=== PATIENT | male | born 1975 | race Hispanic/Latino ===

== ENCOUNTER 2018-08-13 03:03 | Emergency (ER) | payer OTHER ==
[2018-08-13 03:34] LABS: APPEARANCE,URINE Clear (CLEAR); BILIRUBIN,URINE Negative (NEGATIVE); COLOR,URINE Yellow (YELLOW); GLUCOSE, URINE (UA) Negative (NEGATIVE); KETONES,URINE 15 mg/dL (NEGATIVE); LEUKOCYTE ESTERASE ,URINE Negative (NEGATIVE); NITRATE,URINE Negative (NEGATIVE); OCCULT BLOOD,URINE Negative (NEGATIVE); PH,URINE 5.5 (5.0-8.0); PROTEIN,URINE Negative (NEGATIVE)
[2018-08-13 03:42] LABS: AMPHET/METH SCREEN,URINE NEGATIVE (NEGATIVE); BARBITURATE SCREEN, URINE NEGATIVE (NEGATIVE); BENZODIAZEPINES SCREEN,URINE NEGATIVE (NEGATIVE); CANNABINOID SCREEN,URINE POSITIVE (NEGATIVE); COCAINE SCREEN,URINE NEGATIVE (NEGATIVE); OPIATE SCREEN,URINE NEGATIVE (NEGATIVE); PHENCYCLIDINE SCREEN,URINE NEGATIVE (NEGATIVE)
[2018-08-13 04:20] LABS: BASOPHILS % (AUTO) 0.5 % (0.0-5.0); EOSINOPHILS % (AUTO) 0.3 % (0.0-8.0); HEMATOCRIT 45.1 % (42-54); LYMPHOCYTES % (AUTO) 16.4 % (21.0-51.0); MEAN CORPUSCULAR HGB CONC 34.6 g/dL (32.0-36.0); MEAN CORPUSCULAR VOLUME 89.7 fL (79-99); MONOCYTES % (AUTO) 6.5 % (3.0-13.0); NEUTROPHILS % (AUTO) 76.3 % (40.0-77.0); PLATELET COUNT (AUTO) 228 K/uL (130-400); RED BLOOD CELL COUNT(AUTO) 5.03 MIL/uL (4.50-6.20); RED CELL DISTRIBUTION WIDTH 13.5 % (11.0-15.5); WHITE BLOOD COUNT (AUTO) 11.9 K/uL (4.8-10.8)
[2018-08-13 04:27] LABS: CARBON DIOXIDE 23 mmol/L (21-32); CHLORIDE 102 mmol/L (101-111); CREATININE 1.4 mg/dL (0.5-1.5); GLOMERULAR FILTR. RATE CALC 59 mL/min (>60); GLUCOSE,RANDOM 108 mg/dL (70-105); POTASSIUM 3.5 mmol/L (3.5-5.1); SODIUM SERUM 140 mmol/L (136-145); UREA NITROGEN, BLOOD 26 mg/dL (7-18)
[2018-08-13 04:33] LABS: ACETAMINOPHEN < 1 mcg/mL (10-29); ALANINE AMINOTRANSFERASE 56 U/L (12-78); ALBUMIN 4.4 g/dL (3.5-5.0); ASPARTATE AMINOTRANSFERASE 34 U/L (10-37); CREATINE KINASE, TOTAL 277 U/L (21-232); SALICYLATE < 2.8 mg/dL (2.8-20.0); TOTAL PROTEIN, SERUM 7.8 g/dL (6.0-8.3)
[2018-08-13 04:34] LABS: ALCOHOL, BLOOD < 3 mg/dL (0-10)
== END 2018-08-13 08:33 | disposition home or self-care (01) ==
LOC: EDH 03:03
DX: F32.9 Major depressive disorder, single episode, unspecified (principal); F12.10 Cannabis abuse, uncomplicated; R45.851 Suicidal ideations; F20.9 Schizophrenia, unspecified; Z72.0 Tobacco use
CPT/HCPCS: 36415; 80053; 80305; 81003; 82550; 84484; 85025; 93005; 99285; G0480 ×2; G0481

== ENCOUNTER 2018-08-18 20:29 | Emergency (ER) | payer OTHER ==
[2018-08-18 22:04] LABS: APPEARANCE,URINE Clear (CLEAR); BILIRUBIN,URINE Negative (NEGATIVE); COLOR,URINE Yellow (YELLOW); GLUCOSE, URINE (UA) Negative (NEGATIVE); KETONES,URINE Negative (NEGATIVE); LEUKOCYTE ESTERASE ,URINE Negative (NEGATIVE); NITRATE,URINE Negative (NEGATIVE); OCCULT BLOOD,URINE Negative (NEGATIVE); PROTEIN,URINE Negative (NEGATIVE)
[2018-08-18 22:12] LABS: AMPHET/METH SCREEN,URINE NEGATIVE (NEGATIVE); BARBITURATE SCREEN, URINE NEGATIVE (NEGATIVE); BENZODIAZEPINES SCREEN,URINE NEGATIVE (NEGATIVE); CANNABINOID SCREEN,URINE POSITIVE (NEGATIVE); COCAINE SCREEN,URINE NEGATIVE (NEGATIVE); OPIATE SCREEN,URINE NEGATIVE (NEGATIVE); PHENCYCLIDINE SCREEN,URINE NEGATIVE (NEGATIVE)
== END 2018-08-18 23:00 | disposition left against medical advice (07) ==
LOC: EDH 20:29
DX: F31.89 Other bipolar disorder (principal); F19.10 Other psychoactive substance abuse, uncomplicated; F20.9 Schizophrenia, unspecified; E11.9 Type 2 diabetes mellitus without complications; Z72.0 Tobacco use
CPT/HCPCS: 80305; 81003

== ENCOUNTER 2018-08-20 14:48 | Emergency (ER) | payer OTHER | END 2018-08-20 16:51 | disposition home or self-care (01) | LOC: EDH 14:48 | DX: Z00.00 Encounter for general adult medical examination without abnormal findings (principal); E11.9 Type 2 diabetes mellitus without complications; F20.9 Schizophrenia, unspecified; F32.9 Major depressive disorder, single episode, unspecified; F41.9 Anxiety disorder, unspecified; Z98.890 Other specified postprocedural states; Z91.041 Radiographic dye allergy status | CPT/HCPCS: 99281 ==

== ENCOUNTER 2018-08-22 06:39 | Emergency (ER) | payer OTHER ==
[2018-08-22 07:21] LABS: APPEARANCE,URINE Clear (CLEAR); BILIRUBIN,URINE Negative (NEGATIVE); COLOR,URINE Yellow (YELLOW); GLUCOSE, URINE (UA) Negative (NEGATIVE); KETONES,URINE 15 mg/dL (NEGATIVE); LEUKOCYTE ESTERASE ,URINE Negative (NEGATIVE); NITRATE,URINE Negative (NEGATIVE); OCCULT BLOOD,URINE Negative (NEGATIVE); PROTEIN,URINE Negative (NEGATIVE)
[2018-08-22 07:29] LABS: AMPHET/METH SCREEN,URINE NEGATIVE (NEGATIVE); BARBITURATE SCREEN, URINE NEGATIVE (NEGATIVE); BENZODIAZEPINES SCREEN,URINE NEGATIVE (NEGATIVE); CANNABINOID SCREEN,URINE POSITIVE (NEGATIVE); COCAINE SCREEN,URINE NEGATIVE (NEGATIVE); OPIATE SCREEN,URINE NEGATIVE (NEGATIVE); PHENCYCLIDINE SCREEN,URINE NEGATIVE (NEGATIVE)
[2018-08-22 07:32] LABS: BACTERIA,URINE None Seen /HPF (None Seen); RBC,URINE None Seen /HPF (0-1); SQUAMOUS EPITHELIAL CELL,UR 0-2 /HPF (0-2); WBC,URINE None Seen /HPF (0-1)
[2018-08-22 07:33] LABS: BASOPHILS % (AUTO) 0.5 % (0.0-5.0); EOSINOPHILS % (AUTO) 0.2 % (0.0-8.0); HEMATOCRIT 41.8 % (42-54); LYMPHOCYTES % (AUTO) 10.1 % (21.0-51.0); MEAN CORPUSCULAR HEMOGLOBIN 30.1 pg (27.0-33.0); MEAN CORPUSCULAR HGB CONC 34.1 g/dL (32.0-36.0); MEAN CORPUSCULAR VOLUME 88.2 fL (79-99); MONOCYTES % (AUTO) 6.1 % (3.0-13.0); NEUTROPHILS % (AUTO) 83.1 % (40.0-77.0); PLATELET COUNT (AUTO) 232 K/uL (130-400); RED BLOOD CELL COUNT(AUTO) 4.74 MIL/uL (4.50-6.20); RED CELL DISTRIBUTION WIDTH 12.9 % (11.0-15.5); WHITE BLOOD COUNT (AUTO) 13.3 K/uL (4.8-10.8)
[2018-08-22 08:02] LABS: CARBON DIOXIDE 24 mmol/L (21-32); CHLORIDE 100 mmol/L (101-111); CREATININE 1.2 mg/dL (0.5-1.5); GLOMERULAR FILTR. RATE CALC 70 mL/min (>60); GLUCOSE,RANDOM 115 mg/dL (70-105); POTASSIUM 3.7 mmol/L (3.5-5.1); SODIUM SERUM 136 mmol/L (136-145); UREA NITROGEN, BLOOD 26 mg/dL (7-18)
[2018-08-22 08:06] LABS: ACETAMINOPHEN < 1 mcg/mL (10-29); ALANINE AMINOTRANSFERASE 40 U/L (12-78); ALBUMIN 4.7 g/dL (3.5-5.0); ALCOHOL, BLOOD < 3 mg/dL (0-10); ASPARTATE AMINOTRANSFERASE 30 U/L (10-37); BILIRUBIN,TOTAL 1.2 mg/dL (0.2-1.0); CREATINE KINASE, TOTAL 335 U/L (21-232); SALICYLATE < 2.8 mg/dL (2.8-20.0); TOTAL PROTEIN, SERUM 7.9 g/dL (6.0-8.3)
== END 2018-08-22 16:27 | disposition short-term general hospital (02) ==
LOC: EDH 06:39
DX: F22 Delusional disorders (principal); R45.851 Suicidal ideations; F31.9 Bipolar disorder, unspecified; F41.9 Anxiety disorder, unspecified; E11.9 Type 2 diabetes mellitus without complications; F43.10 Post-traumatic stress disorder, unspecified
CPT/HCPCS: 36415; 80053; 80305; 81001; 82550 ×2; 84484; 85025; 93005; 99285; G0480 ×2; G0481

== ENCOUNTER 2024-12-09 18:25 | Observation (INO) | payer MEDICARE ==
[~2024-12-09] VITALS: Ht 180.3 cm; Wt 108.9 kg
--- NOTE | 2024-12-09 19:16 | ERN ---
ED Note History of Present Illness Stated Complaint: GBW AND HYPOGLYCEMIA Chief Complaint: Hypoglycemia Time Seen by MD: 19:10 Dictation: This is a 49-year-old male who presented to the emergency room with complaints of generalized body weakness and low sugars. Patient's and patient indicated that he felt really bad starting around 3-4 p.m. in the evening attempted to eat some hamburger which he could not when he continued to feels sick unable to think straight the patient's activated EMS. His blood glucose was noted to be 40 EMS gave him 12.5 g of D50 and brought him to the ER for further evaluation patient stated that he has been a diabetic and usually takes about 40 units of [place] insulin at midnight. Apparently his PCP has recently reduced it to 40 from 60 units. He took his routine insulin at midnight and ate a banana for breakfast during the day and went to a sports game to watch with his friend. Patient drank 324 oz alcoholic drinks and did not eat any lunch. After he came home around 3 he attempted to eat the hamburger. No nausea vomitings diarrhea hematemesis or melena. The stated that he could not think or talk properly. Patient stated that he also takes glipizide 1 tablet twice a day Temperature 98.1 pulse 71 respirations 18 blood pressure 124/72 with a pulse oximetry of 98% on room air Chronic medical problems include anxiety, PTSD, diabetes mellitus, chronic renal insufficiency. Allergies: Coded Allergies: Iodine and Iodide Containing Produc (Unverified Allergy, Unknown, 08/20/18) Past Medical History Past Medical History: Anxiety, Diabetes-Type II, Hypertension, Renal Failure Surgical History: None PSYCH History: anxiety, depression, other (PTSD) Social History: ETOH RN Note Reviewed/Agreed w/PFSH: Yes Review of System Dictation Constitutional: Negative for fever,chills, and weight loss positive for confusion severe weakness and lethargy Eyes: Negative for injury, pain,redness, and discharge ENT: Negative for injury,pain or swelling Cardiovascular: Negative for chest pain, palpitations, and edema Respiratory: Negative for shortness of breath, cough, and wheezing, Abdomen/GI: Negative for abdominal pain, nausea, vomiting, diarrhea, and constipation Back: Negative for injury and pain : Negative for injury, bleeding and discharge MS/Extremity: Negative for injury and deformity Skin: Negative for rash, and discoloration Neuro: Negative for headache, weakness, numbness, tingling, and seizure Psych: Negative for suicide ideation, homicidal ideation, and hallucinations Initial Vital Sign VS Vital Signs Date Time Temp Pulse Resp B/P (MAP) Pulse Ox O2 Delivery O2 Flow Rate FiO2 12/09/24 18:26 98.1 71 18 124/72 98 Room Air 0 12/09/24 19:25 21 Physical Exam Dictation General: awake, alert, NAD obese male Head/Face: Normocephalic, atraumatic Eyes: PERRL, EOMI, vision at baseline ENT: oral cavity clear, TMs clear, no signs of infection Neck: Trachea midline, supple, no nuchal rigidity Cardiovascular: RRR, normal S1/S2, No MRGs, no JVD Respiratory: CTAB, no respiratory distress, No rales or wheezes Abdomen: Soft, non-tender, non-distended, normal bowel sounds, no guarding or rebound. Skin: Warm, dry, normal turgor, no rash MS/Extremity: Pulses equal, no cyanosis, neurovascular intact, FROM Neuro: COAx4, GCS 15, strength 5/5, CN 2-12 intact, normal cerebellar exam, normal gait, Psych: Normal behavior, mood, and affect normal Extremities-trace edema without any palpable cords, Homans sign is negative Results (Laboratory/Radiology) Laboratory/Radiology Laboratory Tests Test 12/09/24 19:19 12/09/24 22:20 White Blood Count 15.5 K/uL (4.8-10.8) H Red Blood Count 4.31 MIL/uL (4.50-6.20) L Hemoglobin 13.3 g/dL (14.0-18.0) L Hematocrit 38.7 % (42-54) L Mean Corpuscular Volume 89.8 fL (79-99) Mean Corpuscular Hemoglobin 30.9 pg (27.0-33.0) Mean Corpuscular Hemoglobin Concent 34.4 g/dL (32.0-36.0) Red Cell Distribution Width 13.4 % (11.0-15.5) Platelet Count 177 K/uL (130-400) Mean Platelet Volume 11.1 fL (7.5-10.5) H Immature Granulocyte % (Auto) 0.5 % (0-1) Neutrophils (%) (Auto) 88.9 % (40.0-77.0) H Lymphocytes (%) (Auto) 5.9 % (21.0-51.0) L Monocytes (%) (Auto) 3.9 % (3.0-13.0) Eosinophils (%) (Auto) 0.6 % (0.0-8.0) Basophils (%) (Auto) 0.2 % (0.0-5.0) Neutrophils # (Auto) 13.8 K/uL (1.8-7.7) H Lymphocytes # (Auto) 0.9 K/uL (1.0-4.8) L Monocytes # (Auto) 0.6 K/uL (0.1-1.0) Eosinophils # (Auto) 0.09 K/uL (0.00-0.70) Basophils # (Auto) 0.03 K/uL (0.00-0.20) Absolute Immature Granulocyte (auto 0.07 K/uL (0-1) Nucleated Red Blood Cells 0.0 % (0.0-0.19) White Cell Morphology Comment See comments Urine Color LIGHT-YELLOW (YELLOW) Urine Appearance CLEAR (CLEAR) Urine pH 5.5 (5.0-8.0) Urine Specific [place] 1.008 (1.001-1.031) Urine Protein NEGATIVE mg/dL (NEGATIVE) Urine Glucose (UA) NEGATIVE mg/dL (NEGATIVE) Urine Ketones NEGATIVE mg/dL (NEGATIVE) Urine Occult Blood NEGATIVE (NEGATIVE) Urine Nitrate NEGATIVE (NEGATIVE) Urine Bilirubin NEGATIVE mg/dL (NEGATIVE) Urine Urobilinogen 0.2 mg/dL (0.2-1.0) Urine Leukocyte Esterase NEGATIVE [place]/uL Sodium Level 140 mmol/L (136-145) Potassium Level 3.3 mmol/L (3.5-5.1) L Chloride Level 105 mmol/L (101-111) Carbon Dioxide Level 27 mmol/L (21-32) Blood Urea Nitrogen 9 mg/dL (7-18) Creatinine 1.0 mg/dL (0.5-1.3) Glomerular Filtration Rate Calc 92 mL/min (>90) Random Glucose 66 mg/dL (70-105) L Whole Blood Ketones Quantitative 0.3 mmol/L (0.0-0.6) Total Calcium 8.9 mg/dL (8.5-10.1) Urine Opiates Screen NEGATIVE (NEGATIVE) Urine Barbiturates Screen NEGATIVE (NEGATIVE) Urine Phencyclidine Screen NEGATIVE (NEGATIVE) Urine Amphetamines Screen NEGATIVE (NEGATIVE) Urine Benzodiazepines Screen NEGATIVE (NEGATIVE) Urine Cocaine Screen NEGATIVE (NEGATIVE) Urine Marijuana (THC) Screen POSITIVE (NEGATIVE) H Serum Alcohol 32 mg/dL (0-10) H Whole Blood Glucose 160 MG/DL (70-110) H Labs Reviewed?: Yes ED Course ED Course Orders Procedure Category Date Status Time Alcohol, Blood LAB 12/09/24 Complete 19:12 Cbc With Differential LAB 12/09/24 Complete 19:12 Basic Metabolic Panel LAB 12/09/24 Complete 19:12 Ketone Blood LAB 12/09/24 Complete Quantitative 19:12 Urinalysis Profile LAB 12/09/24 Complete 19:12 Drug Screen Urine LAB 12/09/24 Complete 19:12 Dextrose 5%-Water PHA 12/09/24 In Process (D5w) 19:30 Edm Admit Bridge Order ADM 12/09/24 Transmitted 21:40 Chest 1vw RAD 12/09/24 Taken 23:12 Influenza Type A & B, LAB 12/09/24 Logged Rapid 23:12 Covid19 (Sars Antigen LAB 12/09/24 Logged Rapid) 23:12 Ct Abdomen/Pelvis W/O CT 12/09/24 Logged Contrast 23:14 Vital Signs Every 4 CPOE 12/09/24 Transmitted Hours 23:14 Daily Weights CPOE 12/09/24 Transmitted 23:14 I&O Q Shift CPOE 12/09/24 Transmitted 23:14 Activity: Ambulate W/ CPOE 12/09/24 Transmitted Assist 23:14 Clear Liquid DIET 12/10/24 Transmitted Breakfast Cbc With Differential LAB 12/10/24 In Process 04:00 Basic Metabolic Panel LAB 12/10/24 In Process 04:00 Magnesium LAB 12/10/24 In Process 04:00 Phosphorus LAB 12/10/24 In Process 04:00 Thyroid Stimulating LAB 12/10/24 In Process Hormone 04:00 Acetaminophen 325 Tab PHA 12/09/24 In Process (Tylenol 325mg Tab 23:30 Ondansetron 4mg Inj PHA 12/09/24 In Process (Zofran 4mg Inj) 23:30 Clonidine Hcl 0.1 Mg PHA 12/09/24 Complete Tablet (Catapres 0. 23:30 Hydralazine 20mg Inj PHA 12/09/24 In Process (Apresoline 20mg In 23:30 Labetalol 20mg Syg PHA 12/09/24 In Process (Trandate 20mg Syg) 23:30 Apply Scds CPOE 12/09/24 Transmitted 23:14 Turn Patient Q2hrs CPOE 12/09/24 Transmitted 23:14 Elevate Hob At 30 CPOE 12/09/24 Transmitted Degrees 23:14 Admit Orders ADM 12/09/24 Transmitted 23:14 Condition: CPOE 12/09/24 Transmitted 23:14 Telemetry Monitoring CPOE 12/09/24 Transmitted 23:14 Initiate TUNG 12/09/24 In Process Hyperglycemia Protoco 23:14 Current Medications Medications (Trade) Dose Ordered Sig/Ovidio Route PRN Reason Start Time Stop Time Status Last Admin Dose Admin Dextrose 1,000 ml @ 125 mls/hr ONCE ONCE IV 12/09/24 19:30 12/10/24 03:29 12/09/24 20:15 Vital Signs Date Time Temp Pulse Resp B/P (MAP) Pulse Ox O2 Delivery O2 Flow Rate FiO2 12/09/24 22:30 84 17 115/63 99 Room Air* 0 12/09/24 20:36 98.4 75 18 115/71 96 Room Air* 0 12/09/24 19:25 97.9 83 18 110/70 99 Room Air* 0 12/09/24 18:26 98.1 71 18 124/72 98 Room Air 0 We will perform diagnostic labs, and administer medications according to the patient's complaint. Once the results are available, will review and personally interpreted the labs to rule out any acute life-threatening emergency the trach require immediate intervention and treatment. I will then re-evaluate the patient after treatment and diagnostic exams have return to determine whether the patient requires any further testing, can safely be discharged home or need further admission to hospital for additional treatment and evaluation. 7:40 a.m. CBC showed a white count of 15.5 hemoglobin 13.3 platelets 173. BNP 7 is significant for a potassium of 3.3 BUN and creatinine are 9 and 1.0 with a glucose of 66. Urinalysis is unremarkable and UDS is positive for THC. 8:40 p.m. ETOH level was 32 I had a long discussion with the patient and his spouse and recommended that he needs to be admitted to the hospital for 24-48 hours to evaluate his sugars and monitor them closely and readjust his insulin dosing. He also needs to be ev aluated for any occult infection. 9:30 p.m. patient accepted by [facility] mid-level provider for [facility] for admission and further management of hypoglycemia. Medical Decision Making MDM Differential diagnosis: Overdosing with the insulin, dosing may need to be reduced, heavy alcohol intake without p.o. food could have eliminated the glycogen stores, occult gram-negative infection Rationale: Tests considered and ordered secondary to shared decision making include: labs, ECG and radiology Previous outside records reviewed: Old ER visits. Risk of complication and/or morbidity or mortality of patient management: None Medications-Per medication reconciliation Need for hospitalization: Patient does meet criteria for hospitalization. Need for emergency major/minor surgery: No There are no social concerns with this patient. Prescription drug management Prescriptions will include symptomatic care Patient's prior external medical records from other ER visits were reviewed by me as indicated. Prior testing and results from previous visits were reviewed. Prior tests were taken into account with medical decision making and resource utilization, independent historian/historians were used to obtain complete medical history. I independently interpreted the test that were performed, results were reviewed by me and considered findings on radiology if ordered. Medical management and examination interpretation discussions were had by me with other qualified healthcare professionals as indicated for the patient's care. Problem List Problem List: (1) Acute metabolic encephalopathy (2) Hypoglycemia (3) Diabetes mellitus (4) Alcohol ingestion DX & DISP Disposition: Inpatient Decision to Admit Time: 21:42 Departure Impression: Primary Impression: Acute metabolic encephalopathy Additional Impressions: Hypoglycemia, Alcohol ingestion, Diabetes mellitus Condition: Stable Additional Instructions: Patient was informed of all the diagnostic labs and procedures conducted in the emergency room today and demonstrated understanding of the results. I personally reviewed and interpreted all the diagnostic exams performed in the ER today. The patient will be admitted to the hospital for further treatment and evaluation. Disposition-admit to facility Condition-stable/guarded Course-uncertain at this time Pain status-decreased Assessment-exam unchanged Admission Certification- I certify that the patients status is appropriate and is based on my best clinical judgment and the patient's condition as documented in the medical records Referrals: CRISTINO VELASCO MD (PCP) NU ESPITIA MD Dec 09, 2024 19:16
[2024-12-09 19:28] LABS: IMMATURE GRANULOCYTE ABSOLUTE 0.07 K/uL (0-1); NUCLEATED RED BLOOD CELLS 0.0 % (0.0-0.19); PLATELET COUNT (AUTO) 177 K/uL (130-400); RED BLOOD CELL COUNT(AUTO) 4.31 MIL/uL (4.50-6.20); RED CELL DISTRIBUTION WIDTH 13.4 % (11.0-15.5); WHITE BLOOD COUNT (AUTO) 15.5 K/uL (4.8-10.8)
[2024-12-09 19:30] LABS: APPEARANCE,URINE CLEAR (CLEAR); GLUCOSE, URINE (UA) NEGATIVE (NEGATIVE); LEUKOCYTE ESTERASE ,URINE NEGATIVE Leu/uL (NEGATIVE); NITRATE,URINE NEGATIVE (NEGATIVE); OCCULT BLOOD,URINE NEGATIVE (NEGATIVE)
[2024-12-09 19:32] LABS: ADD UA MICROSCOPIC NO
[2024-12-09 19:37] LABS: AMPHET/METH SCREEN,URINE NEGATIVE (NEGATIVE); BARBITURATE SCREEN, URINE NEGATIVE (NEGATIVE); CANNABINOID SCREEN,URINE POSITIVE (NEGATIVE); COCAINE SCREEN,URINE NEGATIVE (NEGATIVE)
[2024-12-09 19:40] LABS: CREATININE 1.0 mg/dL (0.5-1.3); GLOMERULAR FILTR. RATE CALC 92.0 mL/min (>90); GLUCOSE,RANDOM 66.0 mg/dL (70-105); SODIUM SERUM 140.0 mmol/L (136-145); UREA NITROGEN, BLOOD 9.0 mg/dL (7-18)
[2024-12-09 19:42] LABS: ALCOHOL, BLOOD 32.0 mg/dL (0-10)
[2024-12-09] MEDS: DEXTROSE 5%-WATER 1,000 ML IV ONE (20:15)
--- NOTE | 2024-12-09 23:12 | HP ---
[facility] HISTORY & PHYSICAL Date Patient Seen: Dec 09, 2024 Time of Visit: 2129 Supervising Physician: Dr. David Guo ] Primary Care Physician: [SIMON Quiroga ] Outpatient Specialists: [Dr. Dudley-psychiatrist ] Inpatient Consults: [ ] PROBLEM LIST: Symptomatic hypoglycemia-POA , improved Acute metabolic encephalopathy-POA , resolved ETOH dependence-POA Complaint of diarrhea-POA Leukocytosis-POA Mild hypokalemia-POA Dehydration-POA Primary hypertension Stage II renal disease Neuropathy PTSD Bipolar 1 Anxiety disorder Sleep paralysis SASKIA status post tonsillectomy and uvula resection Chronic nicotine disorder Medical noncompliance Plan -admit to med [facility] -obtain CT AP -continue IV D5 NS at 75 mL/hour -multimodal pain management -obtain hemoglobin A1c -continue to monitor metabolic workup -activate CIWA protocol as warranted -Manage anxiety and pain PRN -Depression screen qshift and PRN -Patient education re: medical complaince -[place] cessation education for more than 10 minutes, declined nicotine patch HPI: [Patient is a 49-year-old male with PMH significant for PTSD, anxiety, depression, SASKIA, CKD 2, primary hypertension, diabetes mellitus, neuropathy, gum disease, sleep paralysis, bipolar disorder, ETOH dependence and chronic nicotine disorder who was presented to the ED via EMS concerning acute metabolic encephalopathy secondary to symptomatic hypoglycemia. According to the at bedside, they were driving back home between 4-5:00 p.m. from watching a game at a relative's house with the patient's suddenly became agitated, restless, tremulous with profuse sweating and appears confused. Patient apparently drank 3 x 24 oz cans of chilada which is equivalent to a 6-pack of beer. When they got home, patient's symptoms was becoming more pronounced that the decided to call EMS to bring the patient to the hospital. Upon checkup of the home appliance technician, his blood sugar was in the 40s. Apparently, patient has not had a meal since yesterday. The only thing he ate was a piece of banana at around 11:00 a.m. patient also had a complaint of diarrhea for the past few days and today he got a dose of Kaopectate. He denies abdominal pain, chest pain, fever, chills or other constitutional symptoms. Patient was started on D5 NS and his blood sugar has already been improved, mentation is back to his baseline alert and oriented x4 without signs of focal neurologic deficits. Patient claims that he used to drink 12 packs of beer every day but he has gone down to 6 packs a day. He has been a drinker for the past 7 years. Physical assessment was unrevealing without abdominal tenderness. Goals of care were discussed with the patient and verbalizes understanding and agreement.] PAST MEDICAL HX: see above PAST SURGICAL HX: noncontributory SOCIAL HISTORY: (+) vaping and daily ETOH, denies illicit drug use Coded Allergies: Iodine and Iodide Containing Produc (Unverified Allergy, Unknown, 08/20/18) REVIEW OF SYSTEMS: 12 point ROS reviewed with patient. Pertinent positives mentioned above. Otherwise negative. PHYSICAL EXAM: GENERAL: alert, awake oriented x 4 HEENT: EOMI, Sclera non icteric, dry mucosa NECK: Supple, no JVD, trachea midline LUNGS: Clear breath sounds bilaterally. No wheezes HEART: Regular rate and rhythm. Normal S1 and S2, without murmurs ABD: Abdomen soft, nontender. Bowel sounds present EXT: No clubbing cyanosis or edema NEURO: Alert and oriented to person, follows commands Vital Signs (last 8hr) Date Time Temp Pulse Resp B/P (MAP) Pulse Ox O2 Delivery O2 Flow Rate FiO2 12/09/24 22:30 84 17 115/63 99 Room Air* 0 21 12/09/24 20:36 98.4 75 18 115/71 96 Room Air* 0 21 12/09/24 19:25 97.9 83 18 110/70 99 Room Air* 0 21 12/09/24 18:26 98.1 71 18 124/72 98 Room Air 0 LABS: Hematology Labs: Test 12/09/24 19:19 Range/Units White Blood Count 15.5 H 4.8-10.8 K/uL Red Blood Count 4.31 L 4.50-6.20 MIL/uL Hemoglobin 13.3 L 14.0-18.0 g/dL Hematocrit 38.7 L 42-54 % Mean Corpuscular Volume 89.8 79-99 fL Mean Corpuscular Hemoglobin 30.9 27.0-33.0 pg Mean Corpuscular Hemoglobin Concent 34.4 32.0-36.0 g/dL Red Cell Distribution Width 13.4 11.0-15.5 % Platelet Count 177 130-400 K/uL Mean Platelet Volume 11.1 H 7.5-10.5 fL Immature Granulocyte % (Auto) 0.5 0-1 % Neutrophils (%) (Auto) 88.9 H 40.0-77.0 % Lymphocytes (%) (Auto) 5.9 L 21.0-51.0 % Monocytes (%) (Auto) 3.9 3.0-13.0 % Eosinophils (%) (Auto) 0.6 0.0-8.0 % Basophils (%) (Auto) 0.2 0.0-5.0 % Neutrophils # (Auto) 13.8 H 1.8-7.7 K/uL Lymphocytes # (Auto) 0.9 L 1.0-4.8 K/uL Monocytes # (Auto) 0.6 0.1-1.0 K/uL Eosinophils # (Auto) 0.09 0.00-0.70 K/uL Basophils # (Auto) 0.03 0.00-0.20 K/uL Absolute Immature Granulocyte (auto 0.07 0-1 K/uL Nucleated Red Blood Cells 0.0 0.0-0.19 % White Cell Morphology Comment See comments Chemistry Labs: Test 12/09/24 22:20 12/09/24 19:19 Range/Units Whole Blood Glucose 160 H 70-110 MG/DL Sodium Level 140 136-145 mmol/L Potassium Level 3.3 L 3.5-5.1 mmol/L Chloride Level 105 101-111 mmol/L Carbon Dioxide Level 27 21-32 mmol/L Blood Urea Nitrogen 9 7-18 mg/dL Creatinine 1.0 0.5-1.3 mg/dL Glomerular Filtration Rate Calc 92 >90 mL/min Random Glucose 66 L 70-105 mg/dL Whole Blood Ketones Quantitative 0.3 0.0-0.6 mmol/L Total Calcium 8.9 8.5-10.1 mg/dL DIAGNOSTICS / RADIOLOGY RESULTS: [ ] PLAN NEURO: Minimize central acting medications as possible. Maintain fall precautions, adequate lighting during the day PULMONARY: Supplemental 02 as needed. Maintain aspiration precautions at all times CARDIOVASCULAR: Follow hemodynamics. Vital signs per facility protocol GI & NUTRITION: Continue with nutritional support. Continue stool softeners and laxatives as needed. KIDNEYS & ELECTROLYTES: Strict monitoring of intake, output and overall fluid balance. Avoid nephrotoxic medications to the extent possible. Medications to be dosed according to renal function. Monitor electrolytes and replace as needed ENDOCRINE: Maintain blood glucose between 100-180 at all times. Hypoglycemia protocol in place INFECTIOUS DISEASE: Trend temperature, WBC and procalcitonin level Follow cultures, deescalate antibiotics as soon as possible. Panculture if new onset fever ONCOLOGY/HEMATOLOGY/COAGULATION: Monitor for s/s of bleeding Monitor hemoglobin, coagulation studies as needed SKIN: Pressure ulcer prevention per facility protocol Specialty mattress ORTHO/REHAB: Continue PT/OT Prophylaxis: Continue GI and DVT prophylaxis Code Status: Full Resuscitation Disposition: Home TACOS VELASQUEZ Dec 09, 2024 23:12
--- NOTE | 2024-12-10 00:23 | HMCIMG ---
EXAM: CR Chest, 1 view. CLINICAL HISTORY: Leukocytosis. COMPARISON: CR Chest. 09/12/2012. FINDINGS: The lungs show no infiltration or other acute findings. No pleural effusion or pneumothorax. The cardio mediastinal silhouette is within normal limits. No acute osseous abnormality. IMPRESSION: No acute cardiopulmonary pathology is evident. Compared to the prior study, there is no significant interval change. /Mathias
--- NOTE | 2024-12-10 01:09 | HMCIMG ---
EXAM: CT Abdomen and Pelvis without IV contrast CLINICAL HISTORY: Leukocytosis with diarrhea. Gastroenteritis. TECHNIQUE: Thin collimated axial CT images of the abdomen and pelvis were obtained, with sagittal and coronal reformatted images also submitted. CT scan is done according to ALARA (As Low As Reasonably Achievable). CONTRAST: None. COMPARISON: None. FINDINGS: Fibrocalcific densities in the right posterior basal lung. No focal abnormality within the liver, gallbladder, pancreas, spleen, adrenals, or kidneys. The urinary bladder is suboptimally distended with questionable mild chronic cystitis. The prostate is within normal limits. Small, uncomplicated fat-containing inguinal hernia on the left side. Postsurgical changes and hernia repair mesh in the right inguinal region. No obvious bowel wall thickening, dilatation, or obstruction. Unremarkable appendix. Mild calcific atherosclerotic disease in the abdominal aorta and its branches. No pathological lymphadenopathy in the abdomen or pelvis. No ascites or pneumoperitoneum. No acute bony abnormality is evident. IMPRESSIONS: No acute process in the abdomen or pelvis. Fibrocalcific densities in the right posterior basal lung. The urinary bladder is suboptimally distended with questionable mild chronic cystitis. Small, uncomplicated fat-containing inguinal hernia on the left side. Postsurgical changes and hernia repair mesh in the right inguinal region. /[place]
[2024-12-10] MEDS ORDERED: GLUCAGON 1MG KIT 1 MG ML IM PRN (01:30)
[2024-12-10] MEDS ORDERED: DEXTROSE 50%-WATER 50 ML DISP.SYRIN IV PRN (01:30)
[2024-12-10] MEDS: DEXTROSE 5 % AND 0.9 % NACL 1,000 ML IV SCH (01:55)
[2024-12-10] MEDS: HYDROcodone/APAP 5/325 1 TAB TABLET PO ONE (01:55)
[2024-12-10 02:27] LABS: COVID19 (SARS ANTIGEN RAPID) PRESUMPTIVE NEGATIVE (NEGATIVE); INFLUENZA TYPE A Negative For Type A (NEGATIVE); INFLUENZA TYPE B Negative For Type B (NEGATIVE)
[2024-12-10] MEDS ORDERED: METO-408 PO (06:07)
[2024-12-10] MEDS ORDERED: GABA-529 PO (06:07)
[2024-12-10] MEDS ORDERED: ESCI20TA38 PO (06:07)
[2024-12-10] MEDS ORDERED: BENZ0.5T44 PO (06:07)
[2024-12-10] MEDS ORDERED: BUPR-49 PO (06:07)
[2024-12-10] MEDS ORDERED: ZIPR20CA23 PO (06:07)
[2024-12-10] MEDS ORDERED: LISI40TA15 PO (06:07)
[2024-12-10] MEDS ORDERED: ATOR10 PO (06:07)
[2024-12-10] MEDS ORDERED: THIA50TA13 PO (06:07)
[2024-12-10] MEDS ORDERED: GLIP10TA16 PO (06:07)
[2024-12-10 07:43] LABS: RED BLOOD CELL COUNT(AUTO) 4.00 MIL/uL (4.50-6.20); WHITE BLOOD COUNT (AUTO) 9.9 K/uL (4.8-10.8)
[2024-12-10 07:44] LABS: IMMATURE GRANULOCYTE ABSOLUTE 0.03 K/uL (0-1); NUCLEATED RED BLOOD CELLS 0.0 % (0.0-0.19); PLATELET COUNT (AUTO) 170 K/uL (130-400); RED CELL DISTRIBUTION WIDTH 13.5 % (11.0-15.5)
[2024-12-10 08:00] VITALS: BP 117/76; PULSE 67; RESP 14; TEMP 97.7
[2024-12-10 08:22] LABS: CREATININE 1.0 mg/dL (0.5-1.3); GLOMERULAR FILTR. RATE CALC 92.0 mL/min (>90); GLUCOSE,RANDOM 76.0 mg/dL (70-105); PHOSPHORUS 4.0 mg/dL (2.5-4.9); SODIUM SERUM 140.0 mmol/L (136-145); UREA NITROGEN, BLOOD 8.0 mg/dL (7-18)
[2024-12-10 11:32] VITALS: O2SAT 98
[2024-12-10 12:20] VITALS: BP 116/76; PULSE 60; RESP 14; TEMP 98.2
--- NOTE | 2024-12-10 13:37 | NUR ---
Report given to ELIZABETH Contreras. V/S 109/68mmHg Resp 14 O2 Sat 96% on room air. HR 60 SR. Temp 98.1 orally. Pt. transported via stretcher to Room 302. No acute distress noted.
--- NOTE | 2024-12-10 13:46 | NUR ---
ARRIVAL TO UNIT VIA STRETCHER. ACCOMPANIED BY ROSY RN. PT A&OX4. NON LABORED BREATHING. NOTED 20G TO RT HAND. NO QUESTIONS AT THIS TIME. DENIES PAIN AT THIS TIME.
--- NOTE | 2024-12-10 14:42 | DS ---
[facility] DISCHARGE SUMMARY Date Patient Seen: Dec 10, 2024 Time of Visit: 1255 Supervising Physician: Dr. Cast Primary Care Physician: [SIMON Quiroga ] Outpatient Specialists: [Dr. Dudley-psychiatrist ] Inpatient Consults: [ ] PROBLEM LIST: Symptomatic hypoglycemia-POA , secondary to glipizide without eating, resolved Acute metabolic encephalopathy-POA , resolved ETOH dependence-POA Complaint of diarrhea-POA , resolved Leukocytosis-POA , resolved Mild hypokalemia-POA Dehydration-POA Primary hypertension Stage II renal disease Neuropathy PTSD Bipolar 1 Anxiety disorder Sleep paralysis SASKIA status post tonsillectomy and uvula resection Chronic nicotine disorder Medical noncompliance HOSPITAL COURSE: HPI (per admitting provider)Patient is a 49-year-old male with PMH significant for PTSD, anxiety, depression, SASKIA, CKD 2, primary hypertension, diabetes mellitus, neuropathy, gum disease, sleep paralysis, bipolar disorder, ETOH dependence and chronic nicotine disorder who was presented to the ED via EMS concerning acute metabolic encephalopathy secondary to symptomatic hypoglycemia. According to the at bedside, they were driving back home between 4-5:00 p.m. from watching a game at a relative's house with the patient's suddenly became agitated, restless, tremulous with profuse sweating and appears confused. Patient apparently drank 3 x 24 oz cans of chilada which is equivalent to a 6- pack of beer. When they got home, patient's symptoms was becoming more pronounced that the decided to call EMS to bring the patient to the hospital. Upon checkup of the graphic technician, his blood sugar was in the 40s. Apparently, patient has not had a meal since yesterday. The only thing he ate was a piece of banana at around 11:00 a.m. patient also had a complaint of diarrhea for the past few days and today he got a dose of Kaopectate. He denies abdominal pain, chest pain, fever, chills or other constitutional symptoms. Patient was started on D5 NS and his blood sugar has already been improved, mentation is back to his baseline alert and oriented x4 without signs of focal neurologic deficits. Patient claims that he used to drink 12 packs of beer emanuel ry day but he has gone down to 6 packs a day. He has been a drinker for the past 7 years. Physical assessment was unrevealing without abdominal tenderness. Goals of care were discussed with the patient and verbalizes understanding and agreement.] Patient was seen and examined at bedside with no family present. Patient is awake alert able to answer simple questions appropriately. Patient denies any chest pain or shortness of breadth. Denies any nausea vomiting or abdominal pain. Patient's blood sugars have remained stable at this time we will discontinue patient's D5 W, and start patient on a regular diet if blood sugars maintain patient will be getting discharged today. Instructed the patient the importance of eating while taking medication glipizide, patient states took his medication, however did not eat all day other than a banana which prompted his blood sugars to drop. Patient voices understanding agrees with plan has no questions at this time. Did also instruct patient to follow up with his PCP within 3-5 days upon discharge. The patient was treated for the following problems: ACTIVE PROBLEM LIST FOR THE HOSPITALIZATION: CHRONIC PROBLEMS: continue previous management per PCP unless otherwise indicated SOFTWARE QUALITY ASSURANCE SPECIALIST FINDINGS/RECOMMENDATIONS: [ ] PROCEDURES: as mentioned above DISCHARGE MEDICATIONS: Pt hemodynamically stable and afebrile at time of discharge. PCP notified of patients admission, hospital course and discharge. Continued Medications: Atorvastatin Calcium (Lipitor) 20 Mg Tab 1 TAB PO HS for 30 Days, #30 TAB 0 Refills Benztropine Mesylate (Benztropine Mesylate) 0.5 Mg Tablet 0.5 MG PO BID, TAB Bupropion HCl (Bupropion Xl) 150 Mg Tab.er.24h 150 MG PO AD, TAB Escitalopram Oxalate (Escitalopram Oxalate) 20 Mg Tablet 1 TAB PO DAILY for 30 Days, #30 TAB 0 Refills Gabapentin (Gabapentin) 100 Mg Capsule 1 CAP PO TID for 30 Days, #90 CAP 0 Refills Glipizide (Glipizide) 10 Mg Tablet 1 TAB PO BID for 30 Days, #60 TAB 0 Refills Lisinopril (Lisinopril) 40 Mg Tablet 1 TAB PO DAILY for 30 Days, #30 TAB 0 Refills Metoprolol Succinate (Metoprolol Succinate) 25 Mg Tab.er.24h 1 TAB PO DAILY for 30 Days, #30 TAB 0 Refills Thiamine HCl (Vitamin B-1) 50 Mg Tablet 250 MG PO DAILY, TAB Ziprasidone HCl (Ziprasidone HCl) 20 Mg Capsule 1 CAP PO BID for 30 Days, #60 CAP 0 Refills PHYSICAL EXAM: GENERAL: alert, awake oriented x 4 HEENT: EOMI, Sclera non icteric, dry mucosa NECK: Supple, no JVD, trachea midline LUNGS: Clear breath sounds bilaterally. No wheezes HEART: Regular rate and rhythm. Normal S1 and S2, without murmurs ABD: Abdomen soft, nontender. Bowel sounds present EXT: No clubbing cyanosis or edema NEURO: Alert and oriented to person, follows commands FOLLOW-UP: Follow-up with PCP in 2-3 days RECOMMENDATIONS: See Discharge Instructions This case was seen and discussed with my supervising physician. 35 minutes spent on discharge process, including evaluation of the patient, discussion with nursing staff, medication reconciliation and follow-up appointments ALEXANDER SCHILLING Dec 10, 2024 14:42
[2024-12-10 15:48] VITALS: BP 131/78; PULSE 64; RESP 18; TEMP 97.8
--- NOTE | 2024-12-10 16:21 | NUR ---
DCP:HOME Pt currently lives with his friend Emily Mitchell in her home. pt does not have any DME, home health, or provider services. pt states that he is able to complete ADLs independently. PCP is Kali Quiroga and uses [facility] for any RX needs. [facility] pt will want to go [facility] and family can assist with transportation. Addendum: 12/10/24 at 1625 by NENA CUELLO SS Amended: Links added.
--- NOTE | 2024-12-10 18:27 | NUR ---
DISCHARGE DC'D IV. NO COMPLICATIONS. PT AWARE TO FOLLOW UP WITH PCP/ WITHIN 3-5 DAYS. PHONE NUMBER PROVIDED. PT STATES TO FEEL ANXIOUS TO GO HOME. KIERSTEN RN AT BEDSIDE. SPOKE TO PT. PT SEEMS AT EASE. PT AWARE TO CONTINUE ALL HOME MEDICATIONS. PT QUESTIONED IF HE CONTINUES INSULIN. PT DOES NOT RECALL BRAND/ NAME OF INSULIN. STATES HE TAKES 40UNITS AT BEDTIME. PT WAS EDUCATED TO CALL DR. THOMAS FOR FOLLOW UP APPOINTMENT AND TO CLARIFY INSULIN. LAST GLUCOSE CHECK: 119. PT DENIES PAIN AT THIS TIME. HOME MEDICATIONS HANDED TO PT. PT WAITING FOR RIDE TO TAKE PT HOME.
== END 2024-12-10 18:56 | disposition home or self-care (01) ==
LOC: EDH 18:25 → EDHIP 23:14 → 3AH 12-10 13:46
PROVIDERS: ADMIT Internal Medicine; ATTEND Internal Medicine
DX: E11.649 Type 2 diabetes mellitus with hypoglycemia without coma (principal); E11.40 Type 2 diabetes mellitus with diabetic neuropathy, unspecified; G93.41 Metabolic encephalopathy; I12.9 Hypertensive chronic kidney disease with stage 1 through stage 4 chronic kidney disease, or unspecified chronic kidney disease; E11.22 Type 2 diabetes mellitus with diabetic chronic kidney disease; N18.2 Chronic kidney disease, stage 2 (mild); F43.10 Post-traumatic stress disorder, unspecified; F41.9 Anxiety disorder, unspecified; F10.20 Alcohol dependence, uncomplicated; E87.6 Hypokalemia; E86.0 Dehydration; D72.829 Elevated white blood cell count, unspecified; G47.33 Obstructive sleep apnea (adult) (pediatric); R19.7 Diarrhea, unspecified; Z79.899 Other long term (current) drug therapy; Z98.890 Other specified postprocedural states; Z20.822 Contact with and (suspected) exposure to COVID-19
CPT/HCPCS: 81003; 99285; 80048 ×2; 80305; 85025 ×2; 82948 ×6; 82010; 36415 ×2; 71045; 74176; 96374; 96376; 96361; 84443; 83735; 84100; 87804 ×2; 87426; G0378 ×20; J7070; J7042; J3360 ×2